=== PATIENT | female | born 1970 | race Hispanic/Latino ===

== ENCOUNTER 2017-11-11 10:57 | Emergency (ER) | payer SELFPAY ==
[2017-11-11 10:57] VITALS: BMI 25.7
[2017-11-11 11:07] VITALS: RESP 16
--- NOTE | 2017-11-11 12:02 | C.PDOC ---
History Of Present Illness 44 y/o female presents to ED requesting alcohol detox. She denies SI, HI, visual /auditory hallucinations, or any active physical complaints. Time Seen by Provider: 11/11/17 11:10 Chief Complaint (Nursing): Substance Abuse History Per: Patient History/Exam Limitations: no limitations Past Medical History Reviewed: Historical Data, Nursing Documentation, Vital Signs Vital Signs: Last Vital Signs Temp 98.1 F 11/11/17 11:04 Pulse 94 H 11/11/17 11:04 Resp 16 11/11/17 11:04 BP 145/82 11/11/17 11:04 Pulse Ox 98 11/11/17 12:08 - Medical History PMH: COPD Family History: States: Unknown Family Hx - Social History Hx Alcohol Use: Yes Hx Substance Use: No Review Of Systems Except As Marked, All Systems Reviewed And Found Negative. Constitutional: Negative for: Fever, Chills Cardiovascular: Negative for: Chest Pain, Palpitations Respiratory: Negative for: Cough, Shortness of Breath Gastrointestinal: Negative for: Nausea, Vomiting, Abdominal Pain Psych: Negative for: Suicidal ideation Physical Exam - Physical Exam Appears: Non-toxic, No Acute Distress Skin: Normal Color, Warm, Dry Head: Atraumatic, Normacephalic Eye(s): bilateral: Normal Inspection Oral Mucosa: Moist Neck: Supple Cardiovascular: Rhythm Regular Respiratory: Normal Breath Sounds, No Rales, No Rhonchi, No Wheezing Gastrointestinal/Abdominal: Soft, No Tenderness Extremity: Normal ROM, No Deformity Neurological/Psych: Oriented x3, Normal Speech ED Course And Treatment O2 Sat by Pulse Oximetry: 98 Medical Decision Making Medical Decision Making: Pt was evaluated by rehabilitation worker, pt was informed there are no detox beds available at this time. Pt is being discharged home with a referral. Disposition Counseled Patient/Family Regarding: Studies Performed, Diagnosis, Need For Followup - Disposition Referrals: [facility] [Outside] Disposition: HOME/ ROUTINE Disposition Time: 12:01 Condition: STABLE Additional Instructions: follow up with your doctor within 2 days call to make an appointment take medications as prescribed return to ER if symptoms worsens or progress Instructions: Alcohol Abuse and Alcoholism (DC) Forms: [facility] (Lithuanian), General Discharge Instructions - Clinical Impression Clinical Impression: Alcohol use disorder - Scribe Statement The provider has reviewed the documentation as recorded by the Scribe KP All medical record entries made by the Scribe were at my direction and personally dictated by me. I have reviewed the chart and agree that the record accurately reflects my personal performance of the history, physical exam, medical decision making, and the department course for this patient. I have also personally directed, reviewed, and agree with the discharge instructions and disposition.
[2017-11-11 12:16] VITALS: BP 115/77; PULSE 93; TEMP 98.5; O2SAT 96
== END 2017-11-11 12:15 | disposition home or self-care (01) ==
LOC: C.ER 10:57
DX: F10.10 Alcohol abuse, uncomplicated (principal)